=== PATIENT | male | born 1990 | race Caucasian/White ===

== ENCOUNTER 2018-01-06 | Emergency (ER) | payer SELFPAY ==
[~2018-01-06] VITALS: Ht 167.6 cm; Wt 68.2 kg
[2018-01-06 00:44] VITALS: BP 145/97
== END 2018-01-06 01:06 | disposition home or self-care (01) ==
LOC: EMS 00:01
DX: L25.9 Unspecified contact dermatitis, unspecified cause (principal)
CPT/HCPCS: 99283

== ENCOUNTER 2018-08-31 16:54 | Emergency (ER) | payer SELFPAY ==
[~2018-08-31] VITALS: Ht 170.2 cm; Wt 66.8 kg
[2018-08-31 17:35] VITALS: BP 142/101
== END 2018-08-31 22:49 | disposition left against medical advice (07) ==
LOC: EMS 16:55
DX: Z53.21 Procedure and treatment not carried out due to patient leaving prior to being seen by health care provider (principal)